=== PATIENT | female | born 1970 | race Caucasian/White ===

== ENCOUNTER 2017-04-28 17:36 | Emergency (ER) | payer OTHER ==
[~2017-04-28] VITALS: Ht 163.8 cm; Wt 65.9 kg
[2017-04-28 17:38] VITALS: BP 133/66; PULSE 77; RESP 16; TEMP 97.8; O2SAT 96
[2017-04-28 18:25] LABS: AUTOMATED NEUTROPHIL # 4.6 TH/MM3 (1.8-7.7); BASOPHIL # 0.1 TH/MM3 (0-0.2); BASOPHIL % 0.7 % (0.0-2.0); EOSINOPHIL # 0.1 TH/MM3 (0-0.4); EOSINOPHIL % 1.8 % (0.0-4.0); HEMATOCRIT 44.2 % (35.0-46.0); HEMOGLOBIN 15.2 GM/DL (11.6-15.3); LYMPH % 32.9 % (9.0-44.0); LYMPHOCYTE # 2.6 TH/MM3 (1.0-4.8); MEAN CELL VOLUME 98.6 FL (80.0-100.0); MEAN CORPUSCULAR HEMOGLOBIN 33.9 PG (27.0-34.0); MEAN CORPUSCULAR HGB CONC 34.4 % (32.0-36.0); MEAN PLATELET VOLUME 7.9 FL (7.0-11.0); MONO % 6.8 % (0.0-8.0); MONOCYTE # 0.5 TH/MM3 (0-0.9); NEUT % 57.8 % (16.0-70.0); PLATELET COUNT 282 TH/MM3 (150-450); RED BLOOD COUNT 4.48 MIL/MM3 (4.00-5.30); RED CELL DISTRIBUTION WIDTH 13.2 % (11.6-17.2); WHITE BLOOD COUNT 7.9 TH/MM3 (4.0-11.0)
--- NOTE | 2017-04-28 18:27 | RADRPT ---
EXAM DATE/TIME: 04/28/2017 18:15 [place] COMPARISON: No previous studies available for comparison. INDICATIONS : Chest pain today. MEDICAL HISTORY : None. SURGICAL HISTORY : None. ENCOUNTER: Initial ACUITY: 1 day PAIN SCORE: 8/10 LOCATION: Bilateral chest FINDINGS: PA and lateral views of the chest demonstrate the lungs to be symmetrically aerated without evidence of mass, infiltrate or effusion. The cardiomediastinal contours are unremarkable. Osseous structure s are intact. CONCLUSION: No evidence of acute cardiopulmonary disease. Everardo Bailey MD on April 28, 2017 at 18:25 Board Certified Radiologist. This report was verified electronically.
[2017-04-28 18:30] LABS: PROTHROMBIN TIME - PATIENT 9.7 SEC (9.8-11.6)
[2017-04-28 18:39] LABS: BICARBONATE 23.2 MEQ/L (21.0-32.0); BLOOD UREA NITROGEN 14 MG/DL (7-18); CALCIUM 8.1 MG/DL (8.5-10.1); CHLORIDE 109 MEQ/L (98-107); CREATININE 0.77 MG/DL (0.50-1.00); GLOMERULAR FILTRATION RATE 81 ML/MIN (>89); GLUCOSE,RANDOM 91 MG/DL (74-106); MAGNESIUM 2.4 MG/DL (1.5-2.5); SODIUM (NA) 139 MEQ/L (136-145)
[2017-04-28 18:42] LABS: TROPONIN I LESS THAN 0.02 NG/ML (0.02-0.05)
[2017-04-28] MEDS ORDERED: MONT10TA2 PO (19:36)
[2017-04-28] MEDS ORDERED: TOPI200 PO (19:36)
[2017-04-28] MEDS ORDERED: ASPIRIN 81 MG CHEW TAB PO ONE (19:45)
--- NOTE | 2017-04-28 19:46 | PD ---
HPI Chief Complaint: Chest Pain Time Seen by Provider: 19:18 Travel History International Travel<30 days: No Contact w/Intl Traveler<30days: No Traveled to known affect area: No History of Present Illness HPI Patient comes to the emergency department complaining of chest pain that began around 2:30 this afternoon while at work. Patient describes pain as a dull ache without radiation. Patient reports this got slightly better from initial onset, but the pain is been primarily constant. Denies any radiation. Patient reports slight shortness of breath with this. Patient is on a Holter monitor for tachycardia. Denies any headache with this, diaphoresis, numbness or tingling,, nausea, vomiting, or taking anything for this. Patient is not on any blood thinners. Patient reports having a stress test recently performed by her corporate treasury analyst. PFSH Past Medical History Heart Rhythm Problems: Yes Migraines: Yes ?: Not Past Surgical History Oral Surgery: Yes Social History Alcohol Use: Yes (OCC) Tobacco Use: No Substance Use: No Allergies-Medications (Allergen,Severity, Reaction): Coded Allergies: Sulfa (Sulfonamide Antibiotics) (Verified Allergy, Severe, Hives, 04/28/17) Reported Meds & Prescriptions Reported Meds & Active Scripts Active Reported Singulair (Montelukast Sodium) 10 Mg Tab 10 Mg PO HS Topamax (Topiramate) 200 Mg Tab 200 Mg PO DAILY Review of Systems Except as stated in HPI: all other systems reviewed are Neg Physical Exam Narrative GENERAL: Well-developed, well nourished, in no acute distress, and non-ill appearing. SKIN: Focused skin assessment warm and dry. HEAD: Atraumatic. Normocephalic. EYES: Pupils equal and round. EOMI. No scleral icterus. No injection or drainage. ENT: No nasal bleeding or discharge. Mucous membranes pink and moist. NECK: Trachea midline. No JVD. Supple. No nuclear rigidity. CARDIOVASCULAR: Regular rate and rhythm. No murmur appreciated. RESPIRATORY: No accessory muscle use. No respiratory distress. Clear to auscultation. Breath sounds equal bilaterally. MUSCULOSKELETAL: No obvious deformities. No clubbing. No cyanosis. No edema. Full range of motion. NEUROLOGICAL: Awake and alert. No obvious cranial nerve deficits. Motor grossly within normal limits. Normal speech. PSYCHIATRIC: Appropriate mood and affect; insight and judgment normal. Data Data Last Documented VS Vital Signs Date Time Temp Pulse Resp B/P (MAP) Pulse Ox O2 Delivery O2 Flow Rate FiO2 04/28/17 22:33 04/28/17 19:29 20 Room Air 04/28/17 17:38 97.8 77 96 Orders Orders Electrocardiogram (04/28/17 17:46) Basic Metabolic Panel (Bmp) (04/28/17 17:46) Ckmb (Isoenzyme) Profile (04/28/17 17:46) Complete Blood Count With Diff (04/28/17 17:46) Magnesium (Mg) (04/28/17 17:46) Prothrombin Time / Inr (Pt) (04/28/17 17:46) Act Partial Throm Time (Ptt) (04/28/17 17:46) Troponin I (04/28/17 17:46) Chest, Pa & Lat (04/28/17 17:46) Aspirin Chew (Aspirin Chew) (04/28/17 19:45) Ckmb (Isoenzyme) Profile (04/28/17 20:35) Troponin I (04/28/17 20:35) Ed Discharge Order (04/28/17 22:17) Labs Laboratory Tests Test 04/28/17 18:00 04/28/17 21:09 White Blood Count 7.9 TH/MM3 Red Blood Count 4.48 MIL/MM3 Hemoglobin 15.2 GM/DL Hematocrit 44.2 % Mean Corpuscular Volume 98.6 FL Mean Corpuscular Hemoglobin 33.9 PG Mean Corpuscular Hemoglobin Concent 34.4 % Red Cell Distribution Width 13.2 % Platelet Count 282 TH/MM3 Mean Platelet Volume 7.9 FL Neutrophils (%) (Auto) 57.8 % Lymphocytes (%) (Auto) 32.9 % Monocytes (%) (Auto) 6.8 % Eosinophils (%) (Auto) 1.8 % Basophils (%) (Auto) 0.7 % Neutrophils # (Auto) 4.6 TH/MM3 Lymphocytes # (Auto) 2.6 TH/MM3 Monocytes # (Auto) 0.5 TH/MM3 Eosinophils # (Auto) 0.1 TH/MM3 Basophils # (Auto) 0.1 TH/MM3 CBC Comment DIFF FINAL Differential Comment Prothrombin Time 9.7 SEC Prothromb Time International Ratio 1.0 RATIO Activated Partial Thromboplast Time 29.8 SEC Blood Urea Nitrogen 14 MG/DL Creatinine 0.77 MG/DL Random Glucose 91 MG/DL Calcium Level 8.1 MG/DL Magnesium Level 2.4 MG/DL Sodium Level 139 MEQ/L Potassium Level 3.5 MEQ/L Chloride Level 109 MEQ/L Carbon Dioxide Level 23.2 MEQ/L Anion Gap 7 MEQ/L Estimat Glomerular Filtration Rate 81 ML/MIN Total Creatine Kinase 71 U/L 66 U/L Troponin I LESS THAN 0.02 NG/ML LESS THAN 0.02 NG/ML MDM Medical Decision Making Medical Screen Exam Complete: Yes Emergency Medical Condition: Yes Interpretation(s) EKG reviewed by Dr. Gil shows sinus rhythm with ventricular rate of 77. No STEMI. Differential Diagnosis ACS, angina, unstable angina, pneumonia, pneumothorax, metabolic disturbance Narrative Course The patients chest pain by history and evaluation appears noncardiac, nor noncardiopulmonary in etiology. Evaluation revealed no evidence of cardiac involvement at this time. There is no clinical evidence to suggest thoracic aortic aneurysm or pathology, nor evidence to suggest pulmonary embolism, pericarditis, pneumothorax, nor pneumonia at this time. The patient has minimal risk factors for cardiac disease, pulmonary embolism or aortic disease. Clinical suspicion was discussed with patient and the patient was instructed to follow up with Cardiology tomorrow. I discussed this management with the patient and the patient understands the importance or acute follow up with cardiology for reevaluation. The patient was instructed to return at any time if chest pain recurs, persists, changes or worsens in anyway while awaiting follow up. The patient agreed with plan. Patient in no obvious distress upon re-evaluation. All pertinent laboratory/ Radiology result(s) discussed with patient. Discussed patient with Dr. Gil prior to discharge, who is in agreement with plan of care and disposition. Any questions/concerns in reference to patient diagnosis/condition discussed and clarified prior to patient's discharge. Reinforced sheer importance of close follow up with patient's corporate treasury analyst tomorrow. Instructed patient to return to ED immediately, if symptoms return/worsen. Patient showed understanding of above instructions. Further instructions and recommendations were detailed in discharge paperwork. Patient ambulated without difficulty out of ED at discharge. Physician Communication Physician Communication 1951 discussed patient with Jeniffer SHELL ,who called back for patient's cardiology group [facility] in cardiology, who recommends just repeating a troponin have patient following up in the office tomorrow if negative. Diagnosis Primary Impression: Atypical chest pain Patient Instructions: Chest Pain (ED), General Instructions Additional Instructions: Follow-up with your corporate treasury analyst tomorrow. Return to the emergency department if symptoms get worse. Disposition: 01 DISCHARGE HOME Condition: Stable Yuriy Whaley Apr 28, 2017 19:45
[2017-04-28 22:07] LABS: TROPONIN I LESS THAN 0.02 NG/ML (0.02-0.05)
--- NOTE | 2017-04-29 14:36 | EKG ---
Date Performed: 04/28/2017 Time Performed: 17:55:33 PTAGE: 46 years EKG: Sinus rhythm NORMAL ECG NO PREVIOUS TRACING DOCTOR: Odilia Siegel Interpretating Date/Time 04/29/2017 14:32:08
== END 2017-04-28 22:34 | disposition home or self-care (01) ==
LOC: NEPC 17:36
DX: R07.89 Other chest pain (principal); R06.02 Shortness of breath
CPT/HCPCS: 71046; 80048; 82550; 83735; 84484; 85025; 85610; 85730; 93005; 99285